=== PATIENT | male | born 1985 | race African-American/Black ===

== ENCOUNTER 2017-03-29 09:49 | Inpatient (IN) | payer MEDICARE, OTHER ==
[~2017-03-29] VITALS: Ht 157.5 cm; Wt 103.0 kg
[~2017-03-29 09:49] MED LIST: ALBUAER3 IN; CEPH-37 PO; ELVITAB2; LOP2C PO; MULT-228 PO; PRED-188 PO; TRAZ50TA2
[2017-03-29] MEDS ORDERED: SODIUM CHLORIDE 0.9% 1,000 ML IVB ONE (10:01)
[2017-03-29] MEDS ORDERED: ACETAMINOPHEN 325 MG TAB PO ONE (10:15)
[2017-03-29] MEDS ORDERED: ONDANSETRON HCL 4 MG/2 ML VIAL IV ONE (10:15)
[2017-03-29] MEDS ORDERED: HYDROmorphone HCL 2 MG/ML VL IV ONE (10:15)
[2017-03-29] MEDS ORDERED: ACETAMINOPHEN 500 MG TAB PO ONE (10:15)
[2017-03-29 10:27] LABS: Basophils # (auto) 0 uL; Basophils % (auto) 0.3 % (0.0-2.0); Eosinophils # (auto) 0 uL; Hematocrit 40.2 % (41.0-53.0); Hemoglobin 13.4 g/dL (13.5-17.5); Lymphocytes # (auto) 0.5 uL; Lymphocytes % (auto) 2.9 % (10.0-50.0); Mean Corpuscular Hgb Conc. 33.5 g/dL (32.0-36.0); Mean Corpuscular Volume 89.6 fL (80.0-100.0); Monocytes # (auto) 1.4 uL; Monocytes % (auto) 9.1 % (0.0-12.0); Neutrophils # (auto) 13.5 uL; Neutrophils % (auto) 87.7 % (37.0-80.0); Platelet Count (auto) 282 10^3/uL (140-450); Red Blood Cells 4.48 10^6/uL (4.5-5.90); White Blood Cell 15.4 10^3/uL (4.4-10.8)
[2017-03-29 10:52] LABS: Albumin 3.6 g/dL (3.4-5.0); BUN/Creatinine Ratio 7.8; Bilirubin, Total 0.6 mg/dL (0.2-1.0); Calcium 8.4 mg/dL (8.5-10.1); Potassium 3.8 mmol/L (3.5-5.1); Total Protein 7.3 g/dL (6.4-8.2)
[2017-03-29] MEDS ORDERED: metroNIDAZOLE 500MG/100ML 100 ML IV ONE (11:30)
[2017-03-29 11:58] LABS: Urine Bacteria NONE SEEN /hpf (None Seen); Urine Blood Negative /uL (Negative); Urine Mucus FEW (None Seen); Urine Specific Gravity 1.028 (1.001-1.035); Urine WBC 1 /hpf (0 - 3)
[2017-03-29] MEDS ORDERED: KETOROLAC TROMETH 30 MG/ML 1ML VIAL IV PRN (12:15)
[2017-03-29] MEDS ORDERED: LEVOFLOXACIN 500MG 100 ML IV ONE (12:30)
[2017-03-29] MEDS: FAMOTIDINE (10MG/ML) 2ML VL IV SCH ×2 (13:15→19:59)
[2017-03-29] MEDS: SODIUM CHLORIDE 0.9% 1,000 ML IV SCH ×2 (13:15→20:00)
[2017-03-29] MEDS: ONDANSETRON HCL 4 MG/2 ML VIAL IV PRN ×2 (14:05→19:15)
[2017-03-29] MEDS ORDERED: MORPHINE SULF INJ 2 MG/ML SYRINGE 1ML IV PRN (14:45)
[2017-03-29] MEDS: MORPHINE SULFATE 4 MG/ML SYR/VIAL IV PRN ×2 (15:23→19:15)
[2017-03-29] MEDS ORDERED: LISI40TA PO (18:21)
[2017-03-29] MEDS: metroNIDAZOLE 500MG/100ML 100 ML IV SCH (18:27)
[2017-03-29] MEDS: LEVETIRACETAM 500 MG TAB PO SCH (19:58)
[2017-03-29] MEDS: traZODone HCL 50 MG TAB PO SCH (19:59)
[2017-03-29 20:00] VITALS: BP 107/63
[2017-03-29 22:00] VITALS: BP 107/63
[2017-03-30] MEDS: metroNIDAZOLE 500MG/100ML 100 ML IV SCH ×4 (00:52→18:47)
[2017-03-30] MEDS: MORPHINE SULFATE 4 MG/ML SYR/VIAL IV PRN ×6 (01:13→22:54)
[2017-03-30] MEDS: SODIUM CHLORIDE 0.9% 1,000 ML IV SCH ×3 (04:57→22:53)
[2017-03-30 05:00] VITALS: BP 106/68
[2017-03-30 06:15] LABS: Basophils # (auto) 0.1 uL; Basophils % (auto) 0.6 % (0.0-2.0); Eosinophils # (auto) 0.1 uL; Eosinophils % (auto) 0.7 % (0.0-7.0); Hematocrit 36.2 % (41.0-53.0); Hemoglobin 12.1 g/dL (13.5-17.5); Lymphocytes # (auto) 1.3 uL; Mean Corpuscular Hemoglobin 29.9 pg (28.0-32.0); Mean Corpuscular Hgb Conc. 33.4 g/dL (32.0-36.0); Mean Corpuscular Volume 89.6 fL (80.0-100.0); Monocytes % (auto) 12.4 % (0.0-12.0); Neutrophils # (auto) 5.8 uL; Neutrophils % (auto) 70.3 % (37.0-80.0); Platelet Count (auto) 245 10^3/uL (140-450); Red Blood Cells 4.04 10^6/uL (4.5-5.90); Red Cell Distribution Width 15.3 % (11.8-14.3); White Blood Cell 8.3 10^3/uL (4.4-10.8)
[2017-03-30 06:42] LABS: BUN/Creatinine Ratio 9.2; Bilirubin, Total 0.5 mg/dL (0.2-1.0); Calcium 8.4 mg/dL (8.5-10.1); Potassium 3.8 mmol/L (3.5-5.1); Total Protein 6.5 g/dL (6.4-8.2)
[2017-03-30 08:00] VITALS: BP 113/70
[2017-03-30] MEDS: LEVOFLOXACIN 500MG 100 ML IV SCH (09:24)
[2017-03-30] MEDS: LEVETIRACETAM 500 MG TAB PO SCH ×2 (09:24→22:52)
[2017-03-30] MEDS: LISINOPRIL 20 MG TAB PO SCH (09:25)
[2017-03-30] MEDS: HYDROcodone-ACET 5/325MG TAB PO PRN ×2 (11:18→22:52)
[2017-03-30] MEDS: FAMOTIDINE (10MG/ML) 2ML VL IV SCH (11:45)
[2017-03-30 12:00] VITALS: BP_SYST 109; BP_SYST 157; BP_DIAS 61; BP_DIAS 72
[2017-03-30] MEDS ORDERED: HYDROcodone-ACET 5/325MG TAB PO PRN (13:30)
[2017-03-30] MEDS ORDERED: TEMAZEPAM 15 MG CAP PO PRN (13:30)
[2017-03-30] MEDS ORDERED: LORazepam 0.5 MG TAB PO PRN (13:30)
[2017-03-30] MEDS ORDERED: MORPHINE SULFATE 4 MG/ML SYR/VIAL IV ONE (14:30)
[2017-03-30 17:07] VITALS: BP 114/68
[2017-03-30 22:00] VITALS: BP 111/70
[2017-03-30] MEDS: traZODone HCL 50 MG TAB PO SCH (22:52)
[2017-03-30] MEDS: PROMETHAZINE HCL 25 MG/ML 1ML IV PRN (22:52)
[2017-03-31] MEDS: metroNIDAZOLE 500MG/100ML 100 ML IV SCH ×4 (02:24→17:52)
[2017-03-31] MEDS: FAMOTIDINE (10MG/ML) 2ML VL IV SCH ×2 (02:24→11:27)
[2017-03-31] MEDS: PROMETHAZINE HCL 25 MG/ML 1ML IV PRN (02:58)
[2017-03-31] MEDS: MORPHINE SULFATE 4 MG/ML SYR/VIAL IV PRN ×6 (02:59→22:20)
[2017-03-31] MEDS: ONDANSETRON HCL 4 MG/2 ML VIAL IV PRN ×4 (02:59→17:43)
[2017-03-31 05:00] VITALS: BP 100/54
[2017-03-31] MEDS: HYDROcodone-ACET 5/325MG TAB PO PRN ×3 (05:13→18:53)
[2017-03-31] MEDS: SODIUM CHLORIDE 0.9% 1,000 ML IV SCH ×3 (08:10→20:00)
[2017-03-31 09:00] VITALS: BP 111/68
[2017-03-31] MEDS: LEVETIRACETAM 500 MG TAB PO SCH ×2 (09:47→22:00)
[2017-03-31] MEDS: LEVOFLOXACIN 500MG 100 ML IV SCH (09:47)
[2017-03-31] MEDS: LISINOPRIL 20 MG TAB PO SCH (09:48)
[2017-03-31 13:00] VITALS: BP 114/61
[2017-03-31] MEDS ORDERED: GOLYTELY 4L KIT PO ONE (16:00)
[2017-03-31 17:00] VITALS: BP 122/76
[2017-03-31 22:00] VITALS: BP 120/69
[2017-03-31] MEDS: traZODone HCL 50 MG TAB PO SCH (22:00)
[2017-04-01] MEDS: metroNIDAZOLE 500MG/100ML 100 ML IV SCH ×4 (00:13→18:08)
[2017-04-01] MEDS: FAMOTIDINE (10MG/ML) 2ML VL IV SCH ×2 (00:14→12:22)
[2017-04-01] MEDS: ONDANSETRON HCL 4 MG/2 ML VIAL IV PRN ×2 (03:40→15:23)
[2017-04-01] MEDS: HYDROcodone-ACET 5/325MG TAB PO PRN ×2 (03:46→06:32)
[2017-04-01] MEDS: SODIUM CHLORIDE 0.9% 1,000 ML IV SCH ×3 (04:15→20:07)
[2017-04-01 05:00] VITALS: BP 113/71
[2017-04-01 05:36] LABS: Hematocrit 34.4 % (41.0-53.0); Hemoglobin 11.6 g/dL (13.5-17.5); Mean Corpuscular Hemoglobin 30.1 pg (28.0-32.0); Mean Corpuscular Hgb Conc. 33.8 g/dL (32.0-36.0); Mean Corpuscular Volume 89.2 fL (80.0-100.0); Platelet Count (auto) 257 10^3/uL (140-450); Red Blood Cells 3.85 10^6/uL (4.5-5.90); Red Cell Distribution Width 15.3 % (11.8-14.3); White Blood Cell 4.1 10^3/uL (4.4-10.8)
[2017-04-01 05:42] LABS: Band Neutrophils % (manual) 0; Basophils % (manual) 0 (0.0-2.0); Blast Cells 0; Metamyelocytes % 0; Myelocytes % 0; Promyelocytes % 0; Reactive Lymphocytes 0
[2017-04-01 05:48] LABS: INR 1.05 (0.9-1.15); Prothrombin Time 11.4 sec (9.37-12.3)
[2017-04-01] MEDS ORDERED: MAGNESIUM CITRATE SOLUTION 300 ML BTL PO ONE (06:00)
[2017-04-01] MEDS ORDERED: GOLYTELY 4L KIT PO ONE (06:00)
[2017-04-01 06:12] LABS: BUN/Creatinine Ratio 4.8; Calcium 7.9 mg/dL (8.5-10.1); Potassium 3.6 mmol/L (3.5-5.1)
[2017-04-01 07:00] LABS: Lymphocytes % (manual) 28 (10.0-50.0)
[2017-04-01 07:01] LABS: Eosinophils % (manual) 4 (0-7); Monocytes % (manual) 15 (0-12)
[2017-04-01 09:00] VITALS: BP 104/64
[2017-04-01] MEDS ORDERED: LIDOCAINE VISCOUS 2% 15ML UD ONE (09:50)
[2017-04-01] MEDS ORDERED: SODIUM CHLORIDE LOCK 10 ML ONE (09:50)
[2017-04-01] MEDS ORDERED: FLUMAZENIL 0.1 MG/ML INJ 10ML MDV IV ONE (09:50)
[2017-04-01] MEDS ORDERED: NALOXONE HCL 0.4 MG/ML VIAL ONE (09:50)
[2017-04-01] MEDS ORDERED: diphenhdrAMINE HCL 50 MG/1 ML VL ONE (09:53)
[2017-04-01] MEDS ORDERED: MIDAZOLAM HCL 5 MG/ML-1ML VIAL ONE (09:53)
[2017-04-01] MEDS ORDERED: fentaNYL CITRATE 100 MCG/2 ML VL ONE ×2 (09:53→11:43)
[2017-04-01] MEDS: LISINOPRIL 20 MG TAB PO SCH (10:00)
[2017-04-01] MEDS: LEVOFLOXACIN 500MG 100 ML IV SCH (10:00)
[2017-04-01] MEDS: LEVETIRACETAM 500 MG TAB PO SCH ×2 (10:00→22:37)
[2017-04-01] MEDS ORDERED: fentaNYL CITRATE 100 MCG/2 ML VL IV ONE ×3 (11:04→11:19)
[2017-04-01] MEDS ORDERED: MIDAZOLAM HCL 5 MG/ML-1ML VIAL IV ONE ×3 (11:04→11:12)
[2017-04-01] MEDS ORDERED: diphenhdrAMINE HCL 50 MG/1 ML VL IV ONE ×2 (11:10→11:19)
[2017-04-01] MEDS: HYDROcodone-ACET 10/325MG TAB PO PRN ×2 (12:22→20:05)
[2017-04-01 13:19] VITALS: BP 113/68
[2017-04-01] MEDS: HYDROmorphone HCL 2 MG/ML VL IV PRN (16:25)
[2017-04-01 17:00] VITALS: BP 107/66
[2017-04-01] MEDS ORDERED: INFLUENZA QUAD 2017-2018 0.5 ML SYRG IM ONE (17:15)
[2017-04-01 22:33] VITALS: BP 125/72
[2017-04-01] MEDS: traZODone HCL 50 MG TAB PO SCH (22:37)
[2017-04-02] VITALS (7 sets, daily range): BP systolic 108–127; BP diastolic 62–76
[2017-04-02] MEDS: FAMOTIDINE (10MG/ML) 2ML VL IV SCH ×2 (00:01→12:54)
[2017-04-02] MEDS: metroNIDAZOLE 500MG/100ML 100 ML IV SCH ×4 (00:01→17:23)
[2017-04-02] MEDS: HYDROmorphone HCL 2 MG/ML VL IV PRN ×6 (00:02→23:35)
[2017-04-02] MEDS: SODIUM CHLORIDE 0.9% 1,000 ML IV SCH ×3 (04:15→20:37)
[2017-04-02 05:51] LABS: Hematocrit 35.7 % (41.0-53.0); Hemoglobin 11.8 g/dL (13.5-17.5); Mean Corpuscular Hemoglobin 29.6 pg (28.0-32.0); Mean Corpuscular Hgb Conc. 33.2 g/dL (32.0-36.0); Mean Corpuscular Volume 89.1 fL (80.0-100.0); Platelet Count (auto) 285 10^3/uL (140-450); Red Blood Cells 4.01 10^6/uL (4.5-5.90); Red Cell Distribution Width 15.2 % (11.8-14.3); White Blood Cell 4.5 10^3/uL (4.4-10.8)
[2017-04-02 06:07] LABS: Basophils % (manual) 0 (0.0-2.0); Blast Cells 0; Metamyelocytes % 0; Myelocytes % 0; Promyelocytes % 0; Reactive Lymphocytes 0
[2017-04-02] MEDS: HYDROcodone-ACET 10/325MG TAB PO PRN (06:08)
[2017-04-02 06:41] LABS: Band Neutrophils % (manual) 3; Eosinophils % (manual) 1 (0-7); Lymphocytes % (manual) 36 (10.0-50.0); Monocytes % (manual) 19 (0-12)
[2017-04-02] MEDS: PROMETHAZINE HCL 25 MG/ML 1ML IV PRN ×3 (08:58→19:49)
[2017-04-02] MEDS: LEVETIRACETAM 500 MG TAB PO SCH ×2 (10:34→21:06)
[2017-04-02] MEDS: LEVOFLOXACIN 500MG 100 ML IV SCH (10:35)
[2017-04-02] MEDS: LISINOPRIL 20 MG TAB PO SCH (10:35)
[2017-04-02] MEDS: ACETAMINOPHEN 500 MG TAB PO PRN (16:20)
[2017-04-02] MEDS: traZODone HCL 50 MG TAB PO SCH (21:06)
[2017-04-03] MEDS: metroNIDAZOLE 500MG/100ML 100 ML IV SCH ×4 (00:13→21:52)
[2017-04-03] MEDS: FAMOTIDINE (10MG/ML) 2ML VL IV SCH ×2 (00:17→17:13)
[2017-04-03 05:00] VITALS: BP 126/75
[2017-04-03] MEDS: SODIUM CHLORIDE 0.9% 1,000 ML IV SCH ×3 (05:12→20:39)
[2017-04-03] MEDS: HYDROmorphone HCL 2 MG/ML VL IV PRN ×4 (05:21→20:38)
[2017-04-03] MEDS: ACETAMINOPHEN 500 MG TAB PO PRN ×2 (07:59→17:13)
[2017-04-03 08:00] VITALS: BP 129/79
[2017-04-03 09:25] VITALS: BP 129/75
[2017-04-03] MEDS: LISINOPRIL 20 MG TAB PO SCH (10:08)
[2017-04-03] MEDS: LEVETIRACETAM 500 MG TAB PO SCH ×2 (10:08→21:37)
[2017-04-03] MEDS: LEVOFLOXACIN 500MG 100 ML IV SCH (10:08)
[2017-04-03 12:27] VITALS: BP 130/89
[2017-04-03 16:51] VITALS: BP 126/80
[2017-04-03] MEDS: traZODone HCL 50 MG TAB PO SCH (21:36)
[2017-04-03 22:00] VITALS: BP 122/65
[2017-04-04] MEDS: metroNIDAZOLE 500MG/100ML 100 ML IV SCH ×3 (00:46→12:00)
[2017-04-04] MEDS: FAMOTIDINE (10MG/ML) 2ML VL IV SCH (00:47)
[2017-04-04] MEDS: HYDROmorphone HCL 2 MG/ML VL IV PRN ×3 (01:41→10:32)
[2017-04-04] MEDS: SODIUM CHLORIDE 0.9% 1,000 ML IV SCH (04:24)
[2017-04-04 05:00] VITALS: BP 103/65
[2017-04-04 08:00] VITALS: BP 115/76
[2017-04-04 08:33] VITALS: BP 115/76
[2017-04-04] MEDS: LEVETIRACETAM 500 MG TAB PO SCH (10:33)
[2017-04-04] MEDS: LEVOFLOXACIN 500MG 100 ML IV SCH (10:33)
[2017-04-04] MEDS: LISINOPRIL 20 MG TAB PO SCH (10:34)
[2017-04-04] MEDS: HYDROcodone-ACET 10/325MG TAB PO PRN (13:00)
[2017-04-04 13:50] VITALS: BP 142/81
[2017-04-04 13:51] VITALS: BP 115/76
== END 2017-04-04 14:30 | disposition home or self-care (01) | DRG 872 ==
LOC: EDBD 09:49 → ER 09:49 → OVERFLOW 09:50 → WEST WING 19:25
PROVIDERS: ADMIT Family Medicine; ATTEND Family Medicine
PROC: 0DB68ZX Excision of Stomach, Via Natural or Artificial Opening Endoscopic, Diagnostic (ICD-10-PCS; 2017-04-01)
PROC: 0DBL8ZX Excision of Transverse Colon, Via Natural or Artificial Opening Endoscopic, Diagnostic (ICD-10-PCS; principal; 2017-04-01 10:57)
PROC: 0DB88ZX Excision of Small Intestine, Via Natural or Artificial Opening Endoscopic, Diagnostic (ICD-10-PCS; 2017-04-01 10:57)
DX: A41.9 Sepsis, unspecified organism (principal); K55.9 Vascular disorder of intestine, unspecified; N39.0 Urinary tract infection, site not specified; K52.9 Noninfective gastroenteritis and colitis, unspecified; H91.90 Unspecified hearing loss, unspecified ear; K44.9 Diaphragmatic hernia without obstruction or gangrene; K64.8 Other hemorrhoids; F32.9 Major depressive disorder, single episode, unspecified; Z98.84 Bariatric surgery status; Z87.442 Personal history of urinary calculi; Z82.0 Family history of epilepsy and other diseases of the nervous system; Z90.49 Acquired absence of other specified parts of digestive tract; Z81.1 Family history of alcohol abuse and dependence; Z88.0 Allergy status to penicillin; Z23 Encounter for immunization
CPT/HCPCS: 36415; 43239; 45380; 74176; 80048; 80053; 81001; 83690; 85007; 85025; 85027; 85610; 85730; 87493; 94761; 96361; 96374; 96375; J1956; J2250; J2405; J3490

== ENCOUNTER → 2017-08-02 | Outpatient (CLI) | payer MEDICARE ==
[~2017-08-02] MED LIST changes: -ELVITAB2; +LISI40TA PO
[2017-08-02 10:44] LABS: Alcohol, Urine < 3.0 mg/dL (0-5); Amphetamine Screen, Urine NEGATIVE (NEGATIVE); Barbiturate Scree,Urine NEGATIVE (NEGATIVE); Benzodiazephine Screen, Urine NEGATIVE (NEGATIVE); Cannabinoid Screen, Urine NEGATIVE (NEGATIVE); Cocaine Screen, Urine NEGATIVE (NEGATIVE); Opiate Scree,Urine NEGATIVE (NEGATIVE); Phencyclidine Screen, Urine NEGATIVE (NEGATIVE)
[2017-08-02 10:51] LABS: % Iron Saturation 4.3 % (20-55)
== END | disposition home or self-care (01) ==
LOC: LAB 09:43
PROVIDERS: ATTEND Psychiatry & Neurology Neurology
DX: E61.1 Iron deficiency (principal); M54.5 Low back pain; Z81.1 Family history of alcohol abuse and dependence
CPT/HCPCS: 80307; 82728; 83540; 83550